=== PATIENT | female | born 1965 | race Caucasian/White ===

== ENCOUNTER 2024-08-18 14:28 | Emergency (ER) | payer OTHER, SELFPAY ==
[2024-08-18 14:34] VITALS: BP 133/86
[2024-08-18 15:04] LABS: % Basophils 1.2 % (0-2); % Eosinophils 1.2 % (0-6); % Immature Granulocytes 0.3 % (0-0.5); % Lymphocytes 22.5 % (20.5-51.1); % Monocytes 6.4 % (1.7-9.3); % Neutrophils 68.4 % (42.2-75.2); Absolute Basophils 0.1 10^3/uL (0-0.2); Absolute Eosinophils 0.1 10^3/uL (0-0.7); Absolute Lymphocytes 1.7 10^3/uL (1.2-3.4); Absolute Monocytes 0.5 10^3/uL (0.1-0.6); Absolute Neutrophils 5.1 10^3/uL (1.4-6.5); Hematocrit 38.8 % (37.0-47.0); Mean Corp Hgb Conc. 33.5 g/dL (33.0-37.0); Mean Corpuscular Volume 92.6 fL (81.0-99.0); Mean Platelet Volume 9.9 fL (7.4-10.4); Nucleated Red Blood Cells % 0 %; Platelet Count 307 10^3/uL (130-400); Red Blood Cell Count 4.19 10^6/uL (4.20-5.40); Red Cell Dist. Width 12.6 % (11.5-14.5); White Blood Cell Count 7.5 10^3/uL (4.8-10.8)
[2024-08-18 15:16] LABS: ALT (SGPT) 17 U/L (0-35); AST (SGOT) 24 U/L (14-36); Albumin 4.9 g/dl (3.5-5.0); Alkaline Phosphatase 58 U/L (38-126); Blood Urea Nitrogen 16 mg/dl (7-17); Calcium 9.9 mg/dl (8.4-10.2); Carbon Dioxide 26 mmol/L (22-30); Chloride 102 mmol/L (98-107); Glucose 96 mg/dl (70-99); Potassium 4.4 mmol/L (3.5-5.1); Sodium 137 mmol/L (135-145); Total Bilirubin 0.7 mg/dl (0.2-1.3); Total Protein 7.2 g/dl (6.3-8.2); eGFR > 60.00
[2024-08-18 16:29] VITALS: BMI 21.4
--- NOTE | 2024-08-18 16:46 | ED.GENMED ---
History of Present Illness
General
Chief Complaint: Rectal Bleeding
Source: patient
Time Seen by Provider: 08/18/24 16:36
History of Present Illness
History of Present Illness:
58-year-old female with past medical history of hypothyroidism, anxiety and depression, status post hemorrhoidectomy presenting to the emergency department for evaluation of hemorrhoidal bleeding over the last 4 to 5 days, prescribed a cream by
primary care provider but today started to develop a nauseated sensation and abdominal discomfort prompting her primary care provider to recommend she come to the ER for further evaluation. Patient states the hemorrhoidectomy was well over 20 years
ago and has not had many complications since. She denies any lightheadedness, dizziness, chest pain, shortness of breath, exertional dyspnea. She denies any use of anticoagulants. No other concerns at this time.
Past History
Past History
ED Past Medical History: Hypothyroidism, Psychiatric (Anxiety, depression) and Other (Atrophic right kidney, pituitary adenoma)
ED Past Surgical History: Appendectomy, , Gynecological and Orthopedic
Social History
Tobacco: Non-smoker
Alcohol: Former
Drug: None
Personal: Partner (fiance)
Living: with family
Employment: Employed
Family History
Family History: CAD
Review of Systems
Review of Systems
All Other Systems: ROS reviewed and negative except as documented in HPI and ROS
Phy Exam
Physical Exam
Physical Exam:
GENERAL: Alert , in no apparent distress
EYE: clear conjunctiva b/l
HEAD: NCAT
ENT: o/p clr, mmm.
CARDIAC: Regular rate and rhythm .
LUNGS: Clear breath sounds bilaterally, no acute respiratory distress, no wheezes/rales/rhonchi
ABDOMEN: Soft, mild ttp suprapubically and periumbilically, no r/g, no cvat
RECTAL EXAM: Chaperoned by ED JOANNA Lyles, no external hemorrhoids thrombosed/nonthrombosed
NEUROLOGICAL: Alert and oriented
SKIN: Warm and dry, skin intact.
MUSCULOSKELETAL: No edema, well perfused.
PSYCH: Normal and appropriate interaction.
Scores
Heart Failure Risk
Heart Failure Risk Score: Not Applicable
Heart Score for Chest Pain Patients
STEMI patient?: Not applicable
Withdrawal Assessment of Alcohol
Withdrawal Assessment Completed?: Not applicable
Course
Orders/Labs/Results
Orders:
Orders
08/18/24 14:45
Type+Screen Urgent
Complete Blood Count/With Diff Urgent
Comprehensive Metabolic Panel Urgent
08/18/24 16:28
ABO2 Routine
BBK Wristband Number:
Associate notified that ABO2 has been ordered: [id number]
Date: 08/18/24
Time: 15:13
Public Health Outreach Worker ID: [id number]
Abnormal Lab Results
08/18/24
14:45
RBC 4.19 L 10^6/uL
(4.20-5.40)
08/18/24 14:45
08/18/24 14:45
Vital Signs
Initial and Last Documented VS:
Initial Vital Signs
Temp Pulse Resp BP Pulse Ox
97.6 F 81 16 133/86 100
08/18/24 14:34 08/18/24 14:34 08/18/24 14:34 08/18/24 14:34 08/18/24 14:34
Last Documented Vital Signs
Temp Pulse Resp BP Pulse Ox
97.6 F 81 16 133/86 100
08/18/24 14:34 08/18/24 14:34 08/18/24 14:34 08/18/24 14:34 08/18/24 14:34
MDM/Problems Addressed
Differential Diagnosis Includes:
hemorrhoidal bleeding, internal vs external, diverticulitis, colitis, IBD
MDM/Problems Addressed:
58-year-old female presenting to the ER for evaluation of what she believes to be increased hemorrhoidal bleeding. History of hemorrhoidectomy in the past. Bleeding reportedly over the last 4 to 5 days. Hemodynamically stable. Labs initiated on
arrival show a hemoglobin of 13, no leukocytosis. Suspicion for infection is quite low although given patient now reporting abdominal discomfort and nausea there is potential for diverticulitis versus colitis. Discussed risk versus benefit of CT
imaging and patient ultimately preferred to obtain CT scan which I do think is reasonable. She is declining anything for pain. Reassessment following.
*Pulse Oximetry
Patient hypoxic: no
*Critical Care Note
Total Time (30-74mins, 75-104mins- exclusive of procedures): Not Applicable
Data Reviewed
Review of Other/Old Records Reveals: Labs and Records
Patient Management
Discussion with other providers: PCP
Escalation/DeEscalation of care consider admission/obs:
Upon reevaluating the patient she is now stating she wishes to be discharged home and does not want to have CT scan performed. I did notify patient's primary care provider via [facility] text about her workup in the ER and patient's need for outpatient
management. I did provide patient with information for colorectal surgery as well. Patient is aware of return precautions to the ER. Stable for discharge home.
ED Attending Note
-
Portions of this chart may have been created with voice recognition software.� Occasional wrong word or��sound alike� substitutions may have occurred due to the inherent limitations of voice recognition software.
Discharge Plan
Departure
Patient Disposition: Home (Routine Discharge)
Date of Disposition: 08/18/24
Time of Disposition: 17:05
Patient with high blood pressure during this ER visit?: No
Discharge Problem:
GI bleeding
Instructions: Hemorrhoids (DC)
Prescriptions:
No Action
estradiol 1 APPLIC cream
1 applic S MOTH
fluoxetine 10 MG capsule
10 mg PO DAILY
Referrals:
Jeffrey Parham MD [Active] - (Colorectal Surgery)
El Manzanares MD [Family Provider] -
Interventions
Interventions:
*Risk Screen - Suicide Last Done: 08/18/24 14:34
*General Assessment Last Done: 08/18/24 14:34
*Neglect/Abuse Screening Last Done: 08/18/24 14:34
*ED COVID-19 Vaccine History Last Done: 08/18/24 14:34
*Nursing Disposition Last Done: 08/18/24 17:28
CH-Wlxkzh-Zrmozzdtzf Assessment Last Done: 08/18/24 16:29
Discharge Date and Time
Discharge Date/Time: 08/18/24 17:28
Print Language: DOMINICAN
== END 2024-08-18 17:28 | disposition home or self-care (01) ==
LOC: EMR 14:28
PROVIDERS: EMERGENCY PHYSICIAN Emergency Medicine; FAMILY PHYSICIAN Family Medicine
DX: K92.2 Gastrointestinal hemorrhage, unspecified (principal); E03.9 Hypothyroidism, unspecified; Z86.018 Personal history of other benign neoplasm; Z90.49 Acquired absence of other specified parts of digestive tract
CPT/HCPCS: 99283; 80053; 85025; 86850; 86900; 86901

== ENCOUNTER 2025-03-02 04:54 | Emergency (ER) | payer OTHER, SELFPAY ==
[2025-03-02] VITALS (9 sets, daily range): BP systolic 97–113; BP diastolic 64–69; PULSE 66; BMI 23.1
[2025-03-02 05:47] LABS: Hematocrit 41.0 % (37.0-47.0); Hemoglobin 13.6 g/dL (12.0-16.0); Mean Corp Hgb Conc. 33.2 g/dL (33.0-37.0); Mean Corpuscular Volume 90.7 fL (81.0-99.0); Nucleated Red Blood Cells % 0 %; Platelet Count 298 10^3/uL (130-400); Red Cell Dist. Width 12.7 % (11.5-14.5)
[2025-03-02 06:07] LABS: ALT (SGPT) 18 U/L (0-35); AST (SGOT) 23 U/L (14-36); Albumin 4.4 g/dl (3.5-5.0); Alkaline Phosphatase 45 U/L (38-126); Blood Urea Nitrogen 24 mg/dl (7-17); Calcium 9.6 mg/dl (8.4-10.2); Carbon Dioxide 30 mmol/L (22-30); Chloride 105 mmol/L (98-107); Glucose 100 mg/dl (70-99); Potassium 4.8 mmol/L (3.5-5.1); Sodium 138 mmol/L (135-145); Total Protein 6.9 g/dl (6.3-8.2); eGFR > 60.00
[2025-03-02 06:20] LABS: Troponin I < 0.012 ng/ml
[2025-03-02] MEDS: NSS 1000 IV (07:41)
[2025-03-02] MEDS: REGLAN 10 MG IV (07:42)
[2025-03-02] MEDS: BENADRYL 25 MG IV (07:42)
--- NOTE | 2025-03-02 09:10 | ED.GENMED ---
History of Present Illness
General
Chief Complaint: Dizziness
Source: patient
Exam Limitations: none
Time Seen by Provider: 03/02/25 06:11
Nursing documentation reviewed up to this point in time: agreed with
History of Present Illness
History of Present Illness:
59-year-old female presenting to the emergency department today for concerns of brain spinning dizziness as well as a lump in the right side of her neck over the past couple days she also feels lightheaded off-balance sometimes with walking over the
past 2 days also has had some discomfort and headache behind the right eye. Denies any vision changes numbness weakness nausea vomiting.
Past History
Past History
ED Past Medical History: Hypothyroidism, Psychiatric (Anxiety, depression) and Other (Atrophic right kidney, pituitary adenoma)
ED Past Surgical History: Appendectomy, , Gynecological and Orthopedic
Social History
Tobacco: Non-smoker
Alcohol: Former
Drug: None
Personal: Partner (fiance)
Living: with family
Employment: Employed
Family History
Family History: CAD
Review of Systems
Review of Systems
Allergies reviewed?: Yes
All Other Systems: ROS reviewed and negative except as documented in HPI and ROS
Phy Exam
Physical Exam
Physical Exam:
GENERAL: Alert , in no apparent distress
EYE: pupils equal and reactive
NECK: Supple, no significant adenopathy.
ENT: o/p clr, mmm.
CARDIAC: Regular rate and rhythm .
LUNGS: Clear breath sounds bilaterally, no acute respiratory distress, no wheezes/rales/rhonchi
ABDOMEN: Soft, without focal tenderness, no r/g, no cvat
NEUROLOGICAL: Alert and oriented, no focal neuro deficits 5-5 upper and lower extremity strength normal sensation with palpating bilaterally normal finger-nose and heel banks no pronator drift
SKIN: Warm and dry, skin intact.
MUSCULOSKELETAL: No edema, well perfused.
PSYCH: Normal and appropriate interaction.
Course
Orders/Labs/Results
Orders:
Orders
03/02/25 05:13
EKG [Electrocardiogram (*1)] Urgent
Reason for Study: Vertigo / Dizzy
03/02/25 05:14
EKG- Treatment ONCE
03/02/25 05:24
Complete Blood Count/With Diff Urgent
Comprehensive Metabolic Panel Urgent
TSH Reflex To Free T4 Urgent
Comment: ADD ON
Troponin I Urgent
03/02/25 07:04
CT Head & Neck Angio W/wo IV Urgent
Comment:
Reason For Exam: right posterior neck swelling, dizziness, MIJARES
0.9% Sodium Chloride 1000 ml [Nss] 1,000 ml IV BOLUS
Diphenhydramine [Benadryl] 25 mg IV NOW STA
Metoclopramide [Reglan] 10 mg IV NOW STA
03/02/25 07:06
Add On- LAB Urgent
Tests Added?: tsh free t4
03/02/25 09:00
Pt Eval And Treat Urgent
Treatment: vestibular
Activity Level: Ambulate
Abnormal Lab Results
03/02/25
05:24
Monocytes % 10.1 H %
(1.7-9.3)
BUN 24 H mg/dl
(7-17)
Glucose 100 H mg/dl
(70-99)
03/02/25 05:24
03/02/25 05:24
Vital Signs
Initial and Last Documented VS:
Initial Vital Signs
Temp Pulse Resp BP Pulse Ox
98.7 F 64 16 113/69 98
03/02/25 05:04 03/02/25 05:04 03/02/25 05:04 03/02/25 05:04 03/02/25 05:04
Last Documented Vital Signs
Temp Pulse Resp BP Pulse Ox
98.7 F 58 16 107/68 98
03/02/25 05:04 03/02/25 07:00 03/02/25 07:00 03/02/25 07:00 03/02/25 09:12
MDM/Problems Addressed
MDM/Problems Addressed:
59-year-old female presenting to the emergency department today with concerns ofdizziness small lymph node to the right posterior neck lightheadedness over the past few days. On arrival vital signs are normal patient no distress labs unremarkable
other than slightly elevated BUN to creatinine ratio. She was given fluids and Reglan for the headache which improved the headache significantly. Still had some intermittent dizziness only with movement and changes in positioning. She did CT
angiogram that did not show any emergent findings she did have 40% stenosis of the left carotid and 20% of the right carotid. Otherwise no evidence of a concerning mass to the neck. PT assessed patient positive for BPPV. Karl maneuver performed
with improvement. Otherwise will follow-up closely as an outpatient. Return precautions given.
*Pulse Oximetry
SaO2: 98
Oxygen Mode of Delivery: Room air
Patient hypoxic: no (98)
*Critical Care Note
Total Time (30-74mins, 75-104mins- exclusive of procedures): Not Applicable
ED Attending Note
-
Portions of this chart may have been created with voice recognition software.� Occasional wrong word or��sound alike� substitutions may have occurred due to the inherent limitations of voice recognition software.
Discharge Plan
Departure
Patient Disposition: Home (Routine Discharge)
Date of Disposition: 03/02/25
Time of Disposition: 11:53
Patient with high blood pressure during this ER visit?: No
Condition: Good
Covid-19: Not Applicable
Discharge Problem:
Vertigo, Swelling of lymph node
Instructions: Vertigo (a Type of Dizziness) (DC)
Prescriptions:
No Action
estradiol 1 APPLIC cream
1 applic S MOTH
fluoxetine 10 MG capsule
10 mg PO DAILY
Referrals:
El Manzanares MD [Family Provider, [facility]]
Activity Restrictions/Additional Instructions:
You came to the emergency department today with concerns of dizziness. you had a reassuring assessment. you had a treatment from PT can follow-up with them for ongoing treatments. Return for any worsening, new or concerning symptoms.
Interventions
Interventions:
*Risk Screen - Suicide Last Done: 03/02/25 05:04
*General Assessment Last Done: 03/02/25 05:04
*Neglect/Abuse Screening Last Done: 03/02/25 05:04
*ED- Fall Risk Assessment Last Done: 03/02/25 05:04
*ED COVID-19 Vaccine History Last Done: 03/02/25 05:04
ED- Neurological Assessment Last Done: 03/02/25 07:50
ED Swallowing Screen Last Done: 03/02/25 07:50
Discharge Date and Time
Print Language: MONGOLIAN
== END 2025-03-02 12:10 | disposition home or self-care (01) ==
LOC: EMR 04:54
PROVIDERS: Student in an Organized Health Care Education/Training Program; EMERGENCY PHYSICIAN Emergency Medicine; FAMILY PHYSICIAN Family Medicine
DX: H81.10 Benign paroxysmal vertigo, unspecified ear (principal); R59.0 Localized enlarged lymph nodes; I65.23 Occlusion and stenosis of bilateral carotid arteries; E03.9 Hypothyroidism, unspecified; F41.9 Anxiety disorder, unspecified; F32.A Depression, unspecified; N26.1 Atrophy of kidney (terminal); Z86.018 Personal history of other benign neoplasm; Z82.49 Family history of ischemic heart disease and other diseases of the circulatory system
CPT/HCPCS: 99284; 96374; 96375; 96361; 70496; 70498; 80053; 84443; 84484; 85025; 93005; Q9967